=== PATIENT | female | born 1990 | race Caucasian/White ===

== ENCOUNTER → 2016-07-18 | Outpatient (CLI) | payer OTHER ==
[~2016-07-18] MED LIST: ALBU8I INH; LEVOTAB PO
[2016-07-18 13:20] LABS: AUTOMATED NEUTROPHIL # 4.9 TH/MM3 (1.8-7.7); BASOPHIL % 0.3 % (0.0-2.0); EOSINOPHIL # 0.1 TH/MM3 (0-0.4); EOSINOPHIL % 0.9 % (0.0-4.0); HEMATOCRIT 32.6 % (35.0-46.0); HEMO FLAGS DIFF FINAL; LYMPH % 34.7 % (9.0-44.0); LYMPHOCYTE # 2.9 TH/MM3 (1.0-4.8); MEAN CELL VOLUME 88.1 FL (80.0-100.0); MEAN CORPUSCULAR HEMOGLOBIN 30.5 PG (27.0-34.0); MEAN CORPUSCULAR HGB CONC 34.7 % (32.0-36.0); MONO % 6.1 % (0.0-8.0); PLATELET COUNT 247 TH/MM3 (150-450); RED BLOOD COUNT 3.71 MIL/MM3 (4.00-5.30); RED CELL DISTRIBUTION WIDTH 13.3 % (11.6-17.2); WHITE BLOOD COUNT 8.4 TH/MM3 (4.0-11.0)
[2016-07-18 13:47] LABS: RUBELLA IGG ANTIBODY 17.3 IU/mL (10.0-500.0); RUBELLA STATUS IMMUNE (IMMUNE)
[2016-07-19 14:56] LABS: RAPID PLASMA REAGIN SCREEN NON-REACTIVE (NON-REACTVE)
[2016-07-22 17:18] LABS: CALCULATED AGE AT EDD 26 years (()); DOWN SYNDROME MATERNAL AGE RIS 1/990 (()); GA USED IN RISK ESTIMATE Scan estimate (()); MATERNAL RACE BLACK non-Black (()); MATERNAL WEIGHT (LBS) 146 lbs (()); RECOMMENDED FOLLOW UP None. (()); TRISOMY 18 SCRN RISK ESTIMATE < 1/100 (())
== END ==
LOC: PLAB 08:12
PROVIDERS: ATTEND Obstetrics & Gynecology
DX: Z34.01 Encounter for supervision of normal first pregnancy, first trimester (principal); Z11.3 Encounter for screening for infections with a predominantly sexual mode of transmission
CPT/HCPCS: 81511; 85025; 86592; 86703; 86762; 86850; 86900; 86901; 87086; 87340

== ENCOUNTER → 2016-10-03 | Outpatient (CLI) | payer OTHER ==
[2016-10-03 12:38] LABS: HEMATOCRIT 29.7 % (35.0-46.0); REVIEW FLAG FINAL
== END ==
LOC: CLAB 11:19
PROVIDERS: ATTEND Obstetrics & Gynecology
DX: Z34.02 Encounter for supervision of normal first pregnancy, second trimester (principal); Z11.3 Encounter for screening for infections with a predominantly sexual mode of transmission
CPT/HCPCS: 36415; 82951; 85014; 85018; 86703

== ENCOUNTER → 2016-10-16 | Outpatient (CLI) | payer OTHER | LOC: CLAB 09:25 | PROVIDERS: ATTEND Obstetrics & Gynecology | DX: Z34.03 Encounter for supervision of normal first pregnancy, third trimester (principal) | CPT/HCPCS: 36415; 82951; 82952 ==

== ENCOUNTER → 2016-10-17 | Outpatient (CLI) | payer OTHER ==
--- NOTE | 2016-10-18 15:05 | HM ---
Date Performed: 10/17/2016 Time Performed: 08:38:00 HOOKUP DATE: 10/17/16 08:38:00 AM [facility] ANALYSIS START TIME: 10/17/2016 8:43:00 AM ANALYSIS END TIME: 10/18/2016 8:47:00 AM PATIENT AGE: 26 PATIENT HEIGHT PATIENT WEIGHT DRUG LIST PATIENT DIAGNOSIS: syncope TEST NARRATIVE: The patient's average heart rate was 97 BPM. Heart rates greater than 120 B PM were noted 12% of the time. No episodes of bradycardia were noted. No pauses exceeding 2.0 se conds were noted. No ventricular ectopics were noted. No supraventricular ectopics were noted . Multiple episodes of ST depression (defined as -1.0 mm or more) were noted in channel 1. The maximum depression of -4.0 mm occurred at 07:09:36 PM Kaitlin. Multiple episodes of ST depression (defin ed as -1.0 mm or more) were noted in channel 2. The maximum depression of -3.5 mm occurred at 01:05 :51 PM Kaitlin. Multiple episodes of ST depression (defined as -1.0 mm or more) were noted in channel 3 . The maximum depression of -3.3 mm occurred at 12:51:48 PM Kaitlin. TEST INTERPRETATION: 24 Hour Holter Monitor- Dr. Raghav Gross There was normal Sinus rhythm . There are several periods of sinus tachycardia, with a maximum heart rate of 162 beats per minute a t 05:46 p.m. There was no diary with the Holter tracing. There is no paroxysmal Francisco arrhythmias wer e noted, and no ectopy was seen. S igned by : Raghav Gross
== END ==
LOC: HCAV 08:21
PROVIDERS: ATTEND Obstetrics & Gynecology
DX: R55 Syncope and collapse (principal)
CPT/HCPCS: 93225; 93226

== ENCOUNTER 2016-12-27 10:04 | Inpatient (IN) | payer OTHER ==
[2016-12-27] VITALS (102 sets, daily range): BP systolic 99–145; BP diastolic 54–92; PULSE 67–172; RESP 16–20; TEMP 97.7–98.3
[2016-12-27 11:51] LABS: BACTERIA, URINE FEW /hpf; BLOOD, URINE SMALL (NEG); COMMENT (UR) CULTURE INDICATED; CULTURE IF INDICATED CULTURE INDICATED; GLUCOSE,URINE NEG (NEG); KETONE, URINE NEG (NEG); MUCUS URINE FEW /lpf (OCC); NITRITE,URINE NEG (NEG); PH, URINE 6.5 (5.0-8.5); SQUAMOUS EPITHELIAL CELL URINE 11 /hpf (0-5); URINE COLOR YELLOW (YELLW/STRAW)
[2016-12-27 11:52] LABS: AUTOMATED NEUTROPHIL # 5.2 TH/MM3 (1.8-7.7); BASOPHIL % 0.3 % (0.0-2.0); EOSINOPHIL # 0.1 TH/MM3 (0-0.4); EOSINOPHIL % 0.8 % (0.0-4.0); HEMATOCRIT 28.9 % (35.0-46.0); HEMO FLAGS DIFF FINAL; LYMPH % 31.6 % (9.0-44.0); LYMPHOCYTE # 2.8 TH/MM3 (1.0-4.8); MEAN CELL VOLUME 79.9 FL (80.0-100.0); MEAN CORPUSCULAR HEMOGLOBIN 25.4 PG (27.0-34.0); MEAN CORPUSCULAR HGB CONC 31.8 % (32.0-36.0); MONO % 7.4 % (0.0-8.0); NEUT % 59.9 % (16.0-70.0); PLATELET COUNT 259 TH/MM3 (150-450); RED BLOOD COUNT 3.62 MIL/MM3 (4.00-5.30); RED CELL DISTRIBUTION WIDTH 14.8 % (11.6-17.2); WHITE BLOOD COUNT 8.7 TH/MM3 (4.0-11.0)
[2016-12-27] MEDS ORDERED: MINERAL OIL 10 ML VIAL TOPICAL PRN (12:15)
[2016-12-27] MEDS ORDERED: LIDOCAINE HCL 1% 50 ML VIAL INFIL PRN (12:15)
[2016-12-27] MEDS ORDERED: NS 500 ML BOLUS IV PRN (12:30)
[2016-12-27] MEDS ORDERED: LIDOCAINE HCL 1% 50 ML VIAL I-DERMAL PRN (12:30)
[2016-12-27] MEDS ORDERED: NS 1000 ML IV PRN (12:30)
[2016-12-27] MEDS ORDERED: CITRIC ACID-SODIUM CITRATE LIQ 30 ML UDC PO SCH (12:30)
[2016-12-27] MEDS ORDERED: OXYTOCIN 30 UNITS 500ML PREMIX IV ONE (12:30)
[2016-12-27] MEDS ORDERED: OXYTOCIN 30 UNITS/NS 500ML PREMIX IV SCH (12:30)
[2016-12-27] MEDS ORDERED: ONDANSETRON HCL 4 MG/2 ML VIAL IV PRN (12:30)
[2016-12-27] MEDS ORDERED: LACTATED RINGER'S 1000 ML BOLUS IV PRN (12:30)
[2016-12-27] MEDS: LACTATED RINGER'S 1000 ML IV SCH ×2 (13:20→19:01)
[2016-12-27] MEDS ORDERED: fentaNYL 2MCG-BUPIV 0.125% INJ 100 ML ONE (19:09)
[2016-12-27] MEDS ORDERED: ePHEDrine/NS 25 MG/5 ML SYR IV PRN (20:30)
[2016-12-27] MEDS ORDERED: DO NOT ADMINISTER ANTICOAGULANTS PRN (20:30)
[2016-12-27] MEDS ORDERED: NO SYSTEM NARCOTICS PRN (20:30)
[2016-12-27] MEDS ORDERED: fentaNYL 2MCG-BUPIV 0.125% 100 ML EPIDURAL SCH (20:30)
--- NOTE | 2016-12-27 23:58 | HHI.HP ---
HPI Chief Complaint 26 yo here for induction Date Seen: Dec 27, 2016 Time Seen: 11:30 Travel History International Travel<30 Days: No Contact w/Intl Traveler<30Days: No Known Affected Area: No History of Present Illness HPI Induction at 2 cm doing well without many CTX Para: 0 : 1 History Past Medical History Medical History: Denies Significant Hx Obstetric History Obstetric History primaparous Past Surgical History Surgical History: No Previous Surgery Family History Family History: Negative Social History Alcohol Use: No Tobacco Use: No Substance Abuse: No Allergies-Medications (Allergen,Severity, Reaction): Coded Allergies: Morphine (Verified Allergy, Severe, Swelling, 03/14/16) sweeling on arms Augmentin (Verified Allergy, Intermediate, vomiting, 03/14/16) Chlorhexidine (Verified Allergy, Unknown, 03/14/16) Uncoded Allergies: PRESERVATIVES (Adverse Reaction, Severe, 08/28/14) Home Meds Active Scripts Levonorgestrel & Eth Estradiol (Falmina) Tab1 Tab PO DAILY #1 PACK Ref 3 Prov:Saundra Gray MD 12/04/15 Albuterol Sulfate 8 GM Inhaler (Ventolin Hfa)8 Gm Aero1-2 Puff INH Q4 PRN ( WHEEZING) #1 INHALER Ref 1 * SHAKE WELL BEFORE USE * Prov:Saundra Gray MD 10/11/14 Review of Systems Except as stated in HPI: all other systems reviewed are Neg Physical Exam Vital Signs Date Time Temp Pulse Resp B/P Pulse Ox O2 Delivery O2 Flow Rate FiO2 12/27/16 23:48 98.3 12/27/16 23:40 77 12/27/16 23:35 71 12/27/16 23:30 78 12/27/16 23:30 18 12/27/16 23:30 76 126/77 12/27/16 23:25 70 12/27/16 23:24 71 127/77 12/27/16 23:20 70 12/27/16 23:15 18 12/27/16 23:15 69 132/78 12/27/16 23:15 70 12/27/16 23:10 73 12/27/16 23:05 72 12/27/16 23:00 70 12/27/16 23:00 18 12/27/16 23:00 73 114/82 12/27/16 22:55 74 12/27/16 22:50 76 12/27/16 22:45 18 12/27/16 22:45 172 12/27/16 22:45 82 124/90 12/27/16 22:40 76 12/27/16 22:35 76 12/27/16 22:30 70 12/27/16 22:30 18 12/27/16 22:30 75 121/79 12/27/16 22:25 80 12/27/16 22:20 78 12/27/16 22:15 72 12/27/16 22:15 75 145/73 12/27/16 22:15 18 12/27/16 22:10 71 12/27/16 22:05 80 12/27/16 22:00 72 12/27/16 22:00 97.7 74 104/54 12/27/16 22:00 18 12/27/16 21:55 71 12/27/16 21:50 75 12/27/16 21:45 74 102/62 12/27/16 21:45 68 12/27/16 21:45 18 12/27/16 21:40 85 12/27/16 21:35 74 12/27/16 21:30 18 12/27/16 21:30 74 99/66 12/27/16 21:30 133 12/27/16 21:25 77 12/27/16 21:20 76 12/27/16 21:15 79 113/59 12/27/16 21:15 79 12/27/16 21:15 18 12/27/16 21:10 87 12/27/16 21:05 81 12/27/16 21:00 88 121/65 12/27/16 21:00 72 12/27/16 21:00 18 12/27/16 20:55 85 12/27/16 20:50 74 12/27/16 20:45 79 18 107/68 12/27/16 20:45 71 12/27/16 20:40 92 12/27/16 20:35 108 12/27/16 20:30 99 107/71 12/27/16 20:30 18 12/27/16 20:30 72 12/27/16 20:25 67 12/27/16 20:20 76 12/27/16 20:15 18 12/27/16 20:15 83 12/27/16 20:15 69 113/76 12/27/16 20:10 76 12/27/16 20:05 85 12/27/16 20:00 78 12/27/16 20:00 79 118/77 12/27/16 19:55 77 12/27/16 19:55 83 116/71 12/27/16 19:50 79 12/27/16 19:50 83 114/62 12/27/16 19:45 79 12/27/16 19:45 79 116/69 12/27/16 19:45 18 12/27/16 19:40 81 120/73 12/27/16 19:40 75 12/27/16 19:35 82 118/68 12/27/16 19:35 81 12/27/16 19:30 78 12/27/16 19:29 82 133/79 12/27/16 19:25 88 12/27/16 19:20 85 12/27/16 19:15 18 12/27/16 18:27 20 12/27/16 18:25 73 122/80 12/27/16 17:15 98.2 12/27/16 17:14 93 122/78 12/27/16 17:13 86 140/92 12/27/16 17:12 16 12/27/16 16:10 16 12/27/16 16:08 113 115/76 12/27/16 15:25 83 12/27/16 15:20 89 12/27/16 15:15 77 12/27/16 15:10 81 12/27/16 15:10 78 120/85 12/27/16 15:09 77 18 132/90 12/27/16 14:24 87 120/79 12/27/16 14:24 16 12/27/16 14:23 97.8 12/27/16 13:35 103 12/27/16 13:30 88 12/27/16 13:25 92 12/27/16 13:21 16 12/27/16 13:21 92 119/83 12/27/16 13:20 93 12/27/16 13:15 93 12/27/16 13:10 89 12/27/16 13:05 92 12/27/16 13:00 99 12/27/16 12:55 91 8/4/17 12:51 97 12/27/16 12:51 117/75 12/27/16 12:50 98 12/27/16 12:45 92 12/27/16 12:40 93 12/27/16 12:37 16 12/27/16 12:35 81 12/27/16 12:34 79 121/82 12/27/16 12:20 86 12/27/16 12:15 95 12/27/16 12:10 94 12/27/16 12:05 83 12/27/16 12:00 98 12/27/16 11:55 93 12/27/16 11:50 84 12/27/16 11:45 84 12/27/16 11:40 96 12/27/16 11:35 94 Narrative GENERAL: Well-nourished, well-developed patient. SKIN: Warm and dry. HEAD: Normocephalic and atraumatic. EYES: No scleral icterus. No injection or drainage. ENT: No nasal drainage noted. Mucous membranes pink. Airway patent. NECK: Supple, trachea midline. No JVD. CARDIOVASCULAR: Regular rate and rhythm without murmurs, gallops, or rubs. RESPIRATORY: Breath sounds equal bilaterally. No accessory muscle use. BREASTS: Bilateral exam showed no masses , no retractions, no nipple discharge. ABDOMEN/GI: Abdomen soft, non-tender, bowel sounds present, no rebound, no guarding Gravid to [-] weeks size Fundal Height: [-] GENITOURINARY: External Genitalia: intact and normal in appearance BUS glands: [-] Cervix: [-] Dilatation: [-] Effacement: [-] Station: [-] Presentation: [-] Membranes: [intact or ruptured] Uterine Contractions: [-] FHT's: Category: [-] Baseline: [-] Reactive: [-] Variability: [-] Decels: [-] EXTREMITIES: No cyanosis or edema. BACK: Nontender without obvious deformity. No CVA tenderness. NEUROLOGICAL: Awake and alert. Motor and sensory grossly within normal limits. Five out of 5 muscle strength in all muscle groups. Normal speech. Data Data Vital Signs Reviewed: Yes Orders Code Status (12/27/16 11:39) Vital Signs (Adult) .Per protocol (12/27/16 11:39) Heart (12/27/16 11:39) Amnioinfusion (12/27/16 11:39) Urinary Catheter Management .ONCE (12/27/16 11:39) Complete Blood Count With Diff (12/27/16 11:39) Hold Clot (12/27/16 11:39) Abo/Rh Blood Type (12/27/16 11:39) Urinalysis - C+S If Indicated (12/27/16 11:39) Resp Oxygen Non Rebreathe Mask (12/27/16 ) ^ Epidural / Intrathecal Infus (12/27/16 11:39) Specimen To Be Collected PRN (12/27/16 11:39) ^ Non Stress Test (12/27/16 11:40) Response To Medication .Post New Med Administration, Reaction (12/27/16 11:40) ^ Discontinue Medication (12/27/16 11:40) Diet Liquid (12/27/16 Lunch) Lactated Ringer's 1000 Ml Inj (Lr 1000 M (12/27/16 12:30) Lactated Ringer's 1000 Ml Inj (Lr 1000 M (12/27/16 12:30) Sodium Chlorid 0.9% 500 Ml Inj (Ns 500 M (12/27/16 12:30) Sodium Chlor 0.9% 1000 Ml Inj (Ns 1000 M (12/27/16 12:30) Lidocaine 1% Inj (50 Ml) (Xylocaine 1% I (12/27/16 12:30) Citric Acid-Sodium Citrate Liq (Bicitra (12/27/16 12:30) Ondansetron Inj (Zofran Inj) (12/27/16 12:30) Fentanyl Inj (Fentanyl Inj) (12/27/16 12:15) Fentanyl Inj (Fentanyl Inj) (12/27/16 12:15) Oxytocin 30 Units-500ml Premix (Pitocin (12/27/16 12:30) Lidocaine 1% Inj (50 Ml) (Xylocaine 1% I (12/27/16 12:15) Light Mineral Oil (Muri-Lube Oil) (12/27/16 12:15) Oxytocin 30 Units-500ml Premix (Pitocin (12/27/16 12:30) Urine Culture (12/27/16 10:20) Fentanyl 2mcg-Bupiv 0.125% Inj (Fentanyl (12/27/16 19:09) Misc Nursing Information (12/27/16 20:30) [facility] [place] (12/27/16 20:30) Fentanyl Inj (Fentanyl Inj) (12/27/16 20:30) Fentanyl 2mcg-Bupiv 0.125% Inj (Fentanyl (12/27/16 20:30) Ephedrine/Ns 25 Mg/5 Ml Syr (Ephedrine/N (12/27/16 20:30) Labs Laboratory Tests Test 12/27/16 12/27/16 10:20 10:45 Urine Color YELLOW Urine Turbidity HAZY Urine pH 6.5 Urine Specific [place] 1.012 Urine Protein NEG Urine Glucose (UA) NEG Urine Ketones NEG Urine Occult Blood SMALL Urine Nitrite NEG Urine Bilirubin NEG Urine Urobilinogen LESS THAN 2.0 Urine Leukocyte Esterase LARGE Urine RBC 4 Urine WBC 19 Urine Squamous Epithelial 11 Cells Urine Bacteria FEW Urine Mucus FEW Microscopic Urinalysis Comment CULTURE INDICATED White Blood Count 8.7 Red Blood Count 3.62 Hemoglobin 9.2 Hematocrit 28.9 Mean Corpuscular Volume 79.9 Mean Corpuscular Hemoglobin 25.4 Mean Corpuscular Hemoglobin 31.8 Concent Red Cell Distribution Width 14.8 Platelet Count 259 Mean Platelet Volume 8.2 Neutrophils (%) (Auto) 59.9 Lymphocytes (%) (Auto) 31.6 Monocytes (%) (Auto) 7.4 Eosinophils (%) (Auto) 0.8 Basophils (%) (Auto) 0.3 Neutrophils # (Auto) 5.2 Lymphocytes # (Auto) 2.8 Monocytes # (Auto) 0.6 Eosinophils # (Auto) 0.1 Basophils # (Auto) 0.0 CBC Comment DIFF FINAL Differential Comment Blood Type A POSITIVE Band and Hold Date/Time Procedure Status Source Growth 12/27/16 10:20 Urine Culture Received Urine Clean Catch Pending Assessment/Plan Problem List: (1) 40 weeks gestation of Discharge Planning dc home expect vaginal Nixon Thompson MD Dec 27, 2016 23:58
[2016-12-28] VITALS (27 sets, daily range): BP systolic 110–130; BP diastolic 62–108; PULSE 62–108; RESP 16–20; TEMP 98
[2016-12-28] MEDS ORDERED: DOCUSATE SODIUM 50 MG/SENNA 8.6 MG TAB PO PRN (01:45)
[2016-12-28] MEDS ORDERED: SODIUM CHLORIDE 0.9% FLUSH 10 ML FLUSH IV FLUSH PRN (01:45)
[2016-12-28] MEDS ORDERED: oxyCODONE/ACETAMINOPHEN 5 MG/325 MG TAB PO PRN ×2 (01:45)
[2016-12-28] MEDS ORDERED: OXYTOCIN 30 UNITS-500ML PREMIX 500 ML IV SCH (01:45)
[2016-12-28] MEDS ORDERED: ZOLPIDEM TARTRATE 5 MG TAB PO PRN (01:45)
[2016-12-28] MEDS ORDERED: ALUMINUM/MAGNESIUM/SIMETH 30 ML CUP PO PRN (01:45)
[2016-12-28] MEDS ORDERED: ONDANSETRON ODT 4 MG TAB PO PRN (01:45)
--- NOTE | 2016-12-28 01:47 | PD.OB.DELI ---
Delivery Date: Dec 28, 2016 Anesthesia: Epidural Episiotomy: Right mediolateral Vaginal Delivery: Normal, Spontaneous Presentation: Occiput anterior Delayed cord clamping (45 sec): Yes Infant: Male, Single One Minute : 9 Five Minute : 9 Weight: 7# 3 oz Placenta: Spontaneous delivery, Intact, 3 vessel cord Laceration: Perineal laceration, 2 deg Estimated blood loss: 300 Nixon Thompson MD Dec 28, 2016 01:47
[2016-12-28] MEDS: IBUPROFEN 600 MG TAB PO PRN ×4 (04:04→21:32)
[2016-12-28] MEDS: BENZOCAINE 20% TOPICAL SPRAY 60 ML CAN TOPICAL PRN (05:17)
[2016-12-28] MEDS: WITCH HAZEL 50%/GLYCERIN 12.5% 40 PAD JAR TOPICAL PRN (05:17)
[2016-12-28] MEDS: ACETAMINOPHEN 325 MG TAB PO PRN ×4 (05:17→21:31)
[2016-12-28] MEDS ORDERED: DIPHTH/TETANUS/ACEL PERTUSSIS (BOOSTER) 0.5 ML VIAL/PFS IM ONE (16:00)
[2016-12-28] MEDS: SODIUM CHLORIDE 0.9% FLUSH 10 ML FLUSH IV FLUSH SCH (16:00)
[2016-12-28] MEDS ORDERED: MEASLES, MUMPS, RUBELLA VACCINE 0.5 ML VIAL SQ ONE (16:00)
[2016-12-29] MEDS: IBUPROFEN 600 MG TAB PO PRN ×3 (05:43→17:40)
[2016-12-29] MEDS: ACETAMINOPHEN 325 MG TAB PO PRN ×3 (05:43→17:40)
[2016-12-29] MEDS: SODIUM CHLORIDE 0.9% FLUSH 10 ML FLUSH IV FLUSH SCH (07:24)
[2016-12-29 08:45] VITALS: BP 111/65; PULSE 68; RESP 18; TEMP 97.4
--- NOTE | 2016-12-29 11:31 | HHI.OB ---
Subjective Post Day: 1 Remarks doing well Objective Vitals/I&O Vital Signs Date Time Temp Pulse Resp B/P Pulse Ox O2 Delivery O2 Flow Rate FiO2 12/29/16 08:45 97.4 68 18 111/65 12/28/16 19:40 98.0 62 20 110/67 Objective Remarks GENERAL: Well-nourished, well-developed patient. ABDOMEN/GI: Abdomen soft, non-tender. Fundus: Firm, non-tender at umbilicus. GENITOURINARY: Light to moderate bleeding. EXTREMITIES: No cyanosis or edema, non-tender, without signs of DVT. Medications and IVs Current Medications Medications (Trade) Dose Ordered Sig/Ning Route Start Time Stop Time Status Last Admin (Zofran Inj) 4 mg Q6H PRN IV 12/27/16 12:30 (NS Flush) 2 ml BID IV FLUSH 12/28/16 09:00 (NS Flush) 2 ml UNSCH PRN IV FLUSH 12/28/16 01:45 (Tylenol) 650 mg Q4H PRN PO 12/28/16 01:45 12/29/16 05:43 (Motrin) 600 mg Q6H PRN PO 12/28/16 01:45 12/29/16 05:43 (Percocet 5-325 Mg) 1 tab Q4H PRN PO 12/28/16 01:45 (Percocet 5-325 Mg) 2 tab Q4H PRN PO 12/28/16 01:45 (Americaine 20% Top Spr) 1 spray Q4H PRN TOPICAL 12/28/16 01:45 12/28/16 05:17 (Tucks Pads) 1 applic QID PRN TOPICAL 12/28/16 01:45 12/28/16 05:17 (Tonya-Colace) 2 tab Q12H PRN PO 12/28/16 01:45 (Ambien) 5 mg HS PRN PO 12/28/16 01:45 (Mag-Al Plus Susp Liq) 15 ml Q8H PRN PO 12/28/16 01:45 (Zofran Odt) 4 mg Q6H PRN PO 12/28/16 01:45 Assessment/Plan Problem List: (1) 40 weeks gestation of Discharge Planning dc home expect vaginal Nixon Thompson MD Dec 29, 2016 11:31
[2016-12-29 20:12] VITALS: BP 114/76; PULSE 82; RESP 18; TEMP 97.3
[2016-12-30] MEDS: IBUPROFEN 600 MG TAB PO PRN ×3 (00:05→14:05)
[2016-12-30] MEDS: ACETAMINOPHEN 325 MG TAB PO PRN ×3 (00:06→14:04)
[2016-12-30] MEDS: BENZOCAINE 20% TOPICAL SPRAY 60 ML CAN TOPICAL PRN (00:21)
[2016-12-30] MEDS: WITCH HAZEL 50%/GLYCERIN 12.5% 40 PAD JAR TOPICAL PRN (00:21)
[2016-12-30] MEDS: SODIUM CHLORIDE 0.9% FLUSH 10 ML FLUSH IV FLUSH SCH (07:41)
[2016-12-30 08:52] VITALS: BP 117/82; PULSE 75; RESP 16; TEMP 98.1
--- NOTE | 2016-12-30 13:42 | HHI.OB ---
Subjective Post Day: 2 Remarks doing well dc home Objective Vitals/I&O Vital Signs Date Time Temp Pulse Resp B/P Pulse Ox O2 Delivery O2 Flow Rate FiO2 12/30/16 08:52 98.1 75 16 117/82 12/29/16 20:12 82 18 114/76 12/29/16 20:12 97.3 Objective Remarks GENERAL: Well-nourished, well-developed patient. ABDOMEN/GI: Abdomen soft, non-tender. Fundus: Firm, non-tender at umbilicus. GENITOURINARY: Light to moderate bleeding. EXTREMITIES: No cyanosis or edema, non-tender, without signs of DVT. Medications and IVs Current Medications Medications (Trade) Dose Ordered Sig/Ning Route Start Time Stop Time Status Last Admin (Zofran Inj) 4 mg Q6H PRN IV 12/27/16 12:30 (NS Flush) 2 ml BID IV FLUSH 12/28/16 09:00 (NS Flush) 2 ml UNSCH PRN IV FLUSH 12/28/16 01:45 (Tylenol) 650 mg Q4H PRN PO 12/28/16 01:45 12/30/16 07:45 (Motrin) 600 mg Q6H PRN PO 12/28/16 01:45 12/30/16 07:46 (Percocet 5-325 Mg) 1 tab Q4H PRN PO 12/28/16 01:45 (Percocet 5-325 Mg) 2 tab Q4H PRN PO 12/28/16 01:45 (Americaine 20% Top Spr) 1 spray Q4H PRN TOPICAL 12/28/16 01:45 12/30/16 00:21 (Tucks Pads) 1 applic QID PRN TOPICAL 12/28/16 01:45 12/30/16 00:21 (Tonya-Colace) 2 tab Q12H PRN PO 12/28/16 01:45 (Ambien) 5 mg HS PRN PO 12/28/16 01:45 (Mag-Al Plus Susp Liq) 15 ml Q8H PRN PO 12/28/16 01:45 (Zofran Odt) 4 mg Q6H PRN PO 12/28/16 01:45 Assessment/Plan Problem List: (1) 40 weeks gestation of Discharge Planning dc home expect vaginal Nixon Thompson MD Dec 30, 2016 13:42
[2016-12-30] MEDS ORDERED: OXYC1TAB63 PO (13:43)
--- NOTE | 2016-12-30 13:44 | HHI.DCPOC ---
Discharge Care Plan Diagnosis: (1) Spontaneous vaginal delivery Report Symptoms to Your Doctor -Temperature above 100.5 degrees -Redness, of incision or excessive or foul smelling drainage -Unusual pain or calf pain -Increased vaginal bleeding -Painful or difficulty urinating -Feelings of extreme sadness or anxiety after 2 weeks Goals to Promote Your Health * To prevent worsening of your condition and complications * To maintain your health at the optimal level Directions to Meet Your Goals Take your medications as prescribed Follow your dietary instruction Follow activity as directed Ensure plenty of rest for recovery Drink fluids for hydration Keep your appointments as scheduled Take your immunizations and boosters as scheduled If your symptoms worsen call your PCP, if no PCP go to Urgent Care Center or Emergency Room Smoking is Dangerous to Your Health. Avoid second hand smoke Call the 24-hour crisis hotline for domestic abuse at Nixon Thompson MD Dec 30, 2016 13:44
--- NOTE | 2016-12-30 13:46 | HHI.DS ---
Admission Date Dec 27, 2016 at 10:04 Discharge Date: Dec 30, 2016 Admitting Diagnosis Diagnosis: (1) 40 weeks gestation of Diagnosis: Principal (2) Spontaneous vaginal delivery Diagnosis: Principal Delivery Date: Dec 28, 2016 Vaginal Delivery: Normal : Male, Single Brief History Induction at 2 cm doing well without many CTX Hospital Course dc home Pt Condition on Discharge: Good Discharge Disposition: Discharge Home Discharge Instructions Diet Instructions: As Tolerated, No Restrictions Activities You Can Perform: Pelvic Rest Activities to Avoid: Driving for 24 hrs Follow up Referrals: [employer] [facility] - 2 Weeks @ [facility] with Nixon Thompson MD New Medications: Oxycodone-Acetaminophen (Oxycodone-Acetaminophen) 5-325 mg Tab 1 TAB PO Q4H PRN PAIN SCALE 3 TO 5 #20 TAB Discontinued Medications: Albuterol Sulfate 8 GM Inhaler (Ventolin Hfa) 8 Gm Aero 1-2 PUFF INH Q4 * SHAKE WELL BEFORE USE * PRN WHEEZING #1 Ref 1 INHALER Levonorgestrel & Eth Estradiol (Falmina) Tab 1 TAB PO DAILY #1 Ref 3 PACK Nixon Thompson MD Dec 30, 2016 13:46
== END 2016-12-30 14:47 | disposition home or self-care (01) | DRG 775 ==
LOC: H2EB 10:04 → H1EA 12-28 04:59
PROVIDERS: ADMIT Obstetrics & Gynecology; ATTEND Obstetrics & Gynecology
PROC: 3E0S3CZ (ICD-10-PCS; 2016-12-27)
PROC: 00HU33Z Insertion of Infusion Device into Spinal Canal, Percutaneous Approach (ICD-10-PCS; 2016-12-27)
PROC: 10E0XZZ Delivery of Products of Conception, External Approach (ICD-10-PCS; principal; 2016-12-28)
PROC: 0KQM0ZZ Repair Perineum Muscle, Open Approach (ICD-10-PCS; 2016-12-28)
PROC: 0W8NXZZ Division of Female Perineum, External Approach (ICD-10-PCS; 2016-12-28)
DX: O75.9 Complication of labor and delivery, unspecified (principal); O70.1 Second degree perineal laceration during delivery; Z37.0 Single live birth; Z3A.40 40 weeks gestation of pregnancy
CPT/HCPCS: 59025; 81001; 85025; 86900; 86901; 87086; J2590; J7120

== ENCOUNTER 2017-09-19 17:51 | Emergency (ER) | payer OTHER ==
[~2017-09-19] VITALS: Ht 165.1 cm; Wt 65.2 kg
[~2017-09-19 17:51] MED LIST changes: -ALBU8I INH; -LEVOTAB PO; +OXYC1TAB63 PO
[2017-09-19 18:22] VITALS: BP 116/57; PULSE 109; RESP 18; TEMP 99.5; O2SAT 99
[2017-09-19 19:32] LABS: BILIRUBIN, URINE NEG (NEG); BLOOD, URINE NEG (NEG); GLUCOSE,URINE NEG (NEG); KETONE, URINE NEG (NEG); NITRITE,URINE NEG (NEG); URINE COLOR YELLOW (YELLW/STRAW); URINE LEUKOCYTE ESTERASE NEG (NEG)
[2017-09-19 19:45] LABS: RBC, URINE 0-3 /hpf (0-3); SQUAMOUS EPITHELIAL CELL URINE 0-5 /hpf (0-5); WBC, URINE 0-2 /hpf (0-5)
[2017-09-19] MEDS ORDERED: SODIUM CHLOR 0.9% 1000 ML INJ 1,000 ML IV SCH (19:49)
[2017-09-19] MEDS ORDERED: SODIUM CHLORIDE 0.9% FLUSH 10 ML FLUSH IV FLUSH PRN (20:00)
[2017-09-19 20:09] LABS: AUTOMATED NEUTROPHIL # 1.5 TH/MM3 (1.8-7.7); BASOPHIL # 0.1 TH/MM3 (0-0.2); BASOPHIL % 1.8 % (0.0-2.0); EOSINOPHIL % 0.4 % (0.0-4.0); HEMATOCRIT 38.2 % (35.0-46.0); HEMOGLOBIN 12.8 GM/DL (11.6-15.3); LYMPH % 41.4 % (9.0-44.0); LYMPHOCYTE # 1.5 TH/MM3 (1.0-4.8); MEAN CELL VOLUME 86.3 FL (80.0-100.0); MEAN CORPUSCULAR HEMOGLOBIN 28.9 PG (27.0-34.0); MEAN CORPUSCULAR HGB CONC 33.5 % (32.0-36.0); MEAN PLATELET VOLUME 7.3 FL (7.0-11.0); MONO % 10.1 % (0.0-8.0); MONOCYTE # 0.4 TH/MM3 (0-0.9); NEUT % 46.3 % (16.0-70.0); PLATELET COUNT 198 TH/MM3 (150-450); RED BLOOD COUNT 4.43 MIL/MM3 (4.00-5.30); RED CELL DISTRIBUTION WIDTH 11.7 % (11.6-17.2); WHITE BLOOD COUNT 3.5 TH/MM3 (4.0-11.0)
[2017-09-19 20:18] LABS: CHLORIDE 106 MEQ/L (98-107); SODIUM (NA) 138 MEQ/L (136-145)
[2017-09-19 20:21] LABS: ALBUMIN 3.7 GM/DL (3.4-5.0); BICARBONATE 26.2 MEQ/L (21.0-32.0); CALCIUM 9.1 MG/DL (8.5-10.1); GLUCOSE,RANDOM 99 MG/DL (74-106)
[2017-09-19 20:22] LABS: BLOOD UREA NITROGEN 9 MG/DL (7-18)
[2017-09-19 20:24] LABS: ALT (GPT) 24 U/L (10-53)
[2017-09-19 20:25] LABS: AST (GOT) 21 U/L (15-37); CREATININE 0.41 MG/DL (0.50-1.00); GLOMERULAR FILTRATION RATE 186 ML/MIN (>89)
[2017-09-19 20:26] LABS: TOTAL BILIRUBIN ADULT 0.3 MG/DL (0.2-1.0); TOTAL PROTEIN 7.5 GM/DL (6.4-8.2)
[2017-09-19 20:27] LABS: ALKALINE PHOSPHATASE 115 U/L (45-117)
--- NOTE | 2017-09-19 20:27 | RADRPT ---
EXAM DATE/TIME: 09/19/2017 20:02 [place] COMPARISON: No previous studies available for comparison. INDICATIONS : Bilateral flank and back pain since last night. ORAL CONTRAST: No oral contrast ingested. RADIATION DOSE: 4.40 CTDIvol (mGy) MEDICAL HISTORY : None SURGICAL HISTORY : None. ENCOUNTER: Initial ACUITY: 1 day PAIN SCALE: 7/10 LOCATION: Bilateral flank TECHNIQUE: Volumetric scanning of the abdomen and pelvis was performed. Using automated exposure control and ad justment of the mA and/or kV according to patient size, radiation dose was kept as low as reasonably achievable to obtain optimal diagnostic quality images. DICOM format image data is available electro nically for review and comparison. FINDINGS: LOWER LUNGS: The visualized lower lungs are clear. LIVER: Homogeneous density without lesion. There is no dilation of the biliary tree. No calcified gallston es. SPLEEN: Normal size without lesion. PANCREAS: Within normal limits. KIDNEYS: Very mild right hydronephrosis. No significant hydroureter. No stones are demonstrated. ADRENAL GLANDS: Within normal limits. VASCULAR: There is no aortic aneurysm. BOWEL/MESENTERY: The stomach, small bowel, and colon demonstrate no acute abnormality. There is no free intraperitone al air or fluid. Normal appendix. ABDOMINAL WALL: Within normal limits. RETROPERITONEUM: There is no lymphadenopathy. BLADDER: No wall thickening or mass. REPRODUCTIVE: Within normal limits. INGUINAL: There is no lymphadenopathy or hernia. MUSCULOSKELETAL: Within normal limits for patient age. CONCLUSION: Mild hydronephrosis on the right without hydroureter. A mild degree of congenital UPJ obstruction wou ld be in the differential. Otherwise negative. No stones or inflammatory changes are demonstrated. Nixon Franz MD on September 19, 2017 at 20:21 Board Certified Radiologist. This report was verified electronically.
[2017-09-19 20:35] VITALS: BP 124/71; PULSE 90; RESP 18; TEMP 98.5; O2SAT 99
--- NOTE | 2017-09-19 20:42 | PD ---
HPI Chief Complaint: Flank/Kidney Pain Time Seen by Provider: 19:37 Travel History International Travel<30 days: No Contact w/Intl Traveler<30days: No Traveled to known affect area: No History of Present Illness HPI Patient is a 27-year-old female who comes in complaining of flank pain. She says the pain is in both of her sides and is been going on for the past few days. She says that she had a temperature 100.2 earlier and was concerned she might have a UTI, so she came in. She denies nausea or vomiting. She denies burning on urination. She is currently breast-feeding an 8-month-old infant. She is not taking anything for her pain. Severity is mild to moderate. PFSH Past Medical History Asthma: Yes Diminished Hearing: No Respiratory: Yes (LATENT TB) Immunizations Current: Yes Influenza Vaccination: No ?: Not LMP: 02/2016 : 0 Past Surgical History Surgical History: No Previous Surgery Oral Surgery: Yes (WISDOM TOOTH) Social History Alcohol Use: No Tobacco Use: No Substance Use: No Allergies-Medications (Allergen,Severity, Reaction): Coded Allergies: morphine (Unverified Allergy, Severe, Swelling, 09/19/17) sweeling on arms amoxicillin (Unverified Allergy, Intermediate, vomiting, 09/19/17) clavulanic acid (Unverified Allergy, Intermediate, vomiting, 09/19/17) chlorhexidine (Unverified Allergy, Unknown, 09/19/17) Uncoded Allergies: PRESERVATIVES (Adverse Reaction, Severe, 08/28/14) Reported Meds & Prescriptions Reported Meds & Active Scripts Active No Active Prescriptions or Reported Medications Review of Systems Except as stated in HPI: all other systems reviewed are Neg General / Constitutional: Positive: Fever HENT: No: Headaches, Lightheadedness Cardiovascular: No: Chest Pain or Discomfort Respiratory: No: Shortness of Breath Genitourinary: Positive: Flank Pain, No: Dysuria Musculoskeletal: No: Myalgias Skin: No Rash, No Change in Pigmentation Neurologic: No: Weakness, Dizziness Physical Exam Narrative GENERAL: Awake and alert, in no acute distress. SKIN: Focused skin assessment warm/dry. No wounds or signs of infection. HEAD: Atraumatic. Normocephalic. EYES: Pupils equal and round. No scleral icterus. ENT: Mucous membranes pink and moist. NECK: Trachea midline. No JVD. CARDIOVASCULAR: Regular rate and rhythm. No murmur appreciated. RESPIRATORY: No accessory muscle use. Clear to auscultation. Breath sounds equal bilaterally. GASTROINTESTINAL: Abdomen soft, non-tender, nondistended. No CVA tenderness. MUSCULOSKELETAL: No obvious deformities. No clubbing. No cyanosis. No edema. NEUROLOGICAL: Awake and alert. No obvious cranial nerve deficits. Motor grossly within normal limits. Normal speech. PSYCHIATRIC: Appropriate mood and affect; insight and judgment normal. Data Data Last Documented VS Vital Signs Date Time Temp Pulse Resp B/P (MAP) Pulse Ox O2 Delivery O2 Flow Rate FiO2 09/19/17 20:35 98.5 90 18 124/71 (88) 99 Room Air Orders Orders Urinalysis - C+S If Indicated (09/19/17 19:23) Ed Urine Pregnancytest Poc (09/19/17 19:23) Complete Blood Count With Diff (09/19/17 19:49) Comprehensive Metabolic Panel (09/19/17 19:49) Ct Abd/Pel W/O Iv Contrast (09/19/17 19:49) Iv Access Insert/Monitor (09/19/17 19:49) Ecg Monitoring (09/19/17 19:49) Oximetry (09/19/17 19:49) Sodium Chlor 0.9% 1000 Ml Inj (Ns 1000 M (09/19/17 19:49) Sodium Chloride 0.9% Flush (Ns Flush) (09/19/17 20:00) Labs Laboratory Tests Test 09/19/17 19:27 09/19/17 20:00 Urine Color YELLOW Urine Turbidity CLEAR Urine pH 6.0 Urine Specific [place] 1.020 Urine Protein NEG mg/dL Urine Glucose (UA) NEG mg/dL Urine Ketones NEG mg/dL Urine Occult Blood NEG Urine Nitrite NEG Urine Bilirubin NEG Urine Urobilinogen 0.2 MG/DL Urine Leukocyte Esterase NEG Urine RBC 0-3 /hpf Urine WBC 0-2 /hpf Urine Squamous Epithelial Cells 0-5 /hpf Microscopic Urinalysis Comment CULT NOT INDICATED White Blood Count 3.5 TH/MM3 Red Blood Count 4.43 MIL/MM3 Hemoglobin 12.8 GM/DL Hematocrit 38.2 % Mean Corpuscular Volume 86.3 FL Mean Corpuscular Hemoglobin 28.9 PG Mean Corpuscular Hemoglobin Concent 33.5 % Red Cell Distribution Width 11.7 % Platelet Count 198 TH/MM3 Mean Platelet Volume 7.3 FL Neutrophils (%) (Auto) 46.3 % Lymphocytes (%) (Auto) 41.4 % Monocytes (%) (Auto) 10.1 % Eosinophils (%) (Auto) 0.4 % Basophils (%) (Auto) 1.8 % Neutrophils # (Auto) 1.5 TH/MM3 Lymphocytes # (Auto) 1.5 TH/MM3 Monocytes # (Auto) 0.4 TH/MM3 Eosinophils # (Auto) 0.0 TH/MM3 Basophils # (Auto) 0.1 TH/MM3 CBC Comment DIFF FINAL Differential Comment Blood Urea Nitrogen 9 MG/DL Creatinine 0.41 MG/DL Random Glucose 99 MG/DL Total Protein 7.5 GM/DL Albumin 3.7 GM/DL Calcium Level 9.1 MG/DL Alkaline Phosphatase 115 U/L Aspartate Amino Transf (AST/SGOT) 21 U/L Alanine Aminotransferase (ALT/SGPT) 24 U/L Total Bilirubin 0.3 MG/DL Sodium Level 138 MEQ/L Potassium Level 3.6 MEQ/L Chloride Level 106 MEQ/L Carbon Dioxide Level 26.2 MEQ/L Anion Gap 6 MEQ/L Estimat Glomerular Filtration Rate 186 ML/MIN [facility] Medical Decision Making Medical Screen Exam Complete: Yes Emergency Medical Condition: Yes Medical Record Reviewed: Yes Differential Diagnosis UTI versus renal stone versus muscle strain Narrative Course Patient is a 27-year-old female comes in complaining of flank pain. Exam shows no acute abnormalities. Patient is afebrile on arrival. IV established, labs sent. Labs show normal kidney function. Urinalysis is negative for infection. CT abdomen and pelvis performed shows no acute abnormalities. Last 24 hours Impressions Abdomen/Pelvis CT 09/19/171948 Signed Impressions: Service Date/Time: Tuesday, September 19, 2017 20:02 - CONCLUSION: Mild hydronephrosis on the right without hydroureter. A mild degree of congenital UPJ obstruction would be in the differential. Otherwise negative. No stones or inflammatory changes are demonstrated. Nixon Franz MD Patient advised of results. She is given IV fluids and feeling better. She is encouraged to drink more fluids and take Tylenol or ibuprofen as needed for pain. Advised return to the ED as needed for any worsening symptoms. Advised follow-up with a primary care doctor. Diagnosis Primary Impression: Back pain Qualified Codes: M54.9 - Dorsalgia, unspecified Patient Instructions: Back Pain (ED), General Instructions Additional Instructions: Drink plenty of fluids. Take Tylenol or ibuprofen as needed for pain. Follow- up with a primary care doctor. Return to the ED as needed for any worsening symptoms. Scripts No Active Prescriptions or Reported Meds Disposition: 01 DISCHARGE HOME Condition: Stable Summer Rosario MD Sep 19, 2017 20:42
== END 2017-09-19 21:01 | disposition home or self-care (01) ==
LOC: PHED 17:51
DX: M54.9 Dorsalgia, unspecified (principal); J45.909 Unspecified asthma, uncomplicated
CPT/HCPCS: 74176; 80053; 81001; 84703; 85025; 99284; J7030

== ENCOUNTER 2017-09-21 10:52 | Emergency (ER) | payer OTHER ==
[~2017-09-21] VITALS: Ht 165.1 cm; Wt 65.0 kg
[2017-09-21 10:57] VITALS: BP 125/74; PULSE 108; RESP 18; TEMP 97.9; O2SAT 100
--- NOTE | 2017-09-21 11:43 | PD ---
HPI Chief Complaint: Fever Time Seen by Provider: 11:14 Travel History International Travel<30 days: No Contact w/Intl Traveler<30days: No Traveled to known affect area: No History of Present Illness HPI 27-year-old female that presents to the ED for evaluation of neck pain, headache , fever and flank pain. Per patient she was here 2 days ago at [facility] and was evaluated had a full workup that essentially was unremarkable. 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 She states that the flank pain overall has improved and comes and goes. Per patient yesterday she had a bad day where she had severe neck pain and headache and it was very hard for her to move without severe pain. Per patient she took ibuprofen and Tylenol with some relief of the fever and pain and today feels improved although she still has a headache and slight neck pain. She is able to move it fully. She states that she has noted some soreness on her throat and she has not had any appetite. She states that her son had an episode of possible seizure-like activity and they are concerned that patient might have meningitis secondary to the symptoms. Patient states that currently her pain is 4 out of 10. She states that the fever has been as high as 102. She has been taking fever relievers today and has no fever currently. She denies any cough. She states that about 3 weeks ago she was diagnosed with a sinus infection to antibiotics to make it better. She denies any cough or runny nose at this time. She denies any urinary or bowel movement issues. Per patient she did have an frequency of urine but this has improved. She was diagnosed with viral syndrome but she is concerned there is something else going on. She does tell me that she was diagnosed with latent TB and has not gotten any treatment for it. [facility] Past Medical History Asthma: Yes Diminished Hearing: No Respiratory: Yes (LATENT TB) Immunizations Current: Yes ?: Not LMP: FEB 2016 : 0 Past Surgical History Oral Surgery: Yes (WISDOM TOOTH) Social History Alcohol Use: No Tobacco Use: No Substance Use: No Allergies-Medications (Allergen,Severity, Reaction): Coded Allergies: morphine (Unverified Allergy, Severe, Swelling, 09/21/17) sweeling on arms clavulanic acid (Unverified Allergy, Intermediate, vomiting, 09/21/17) chlorhexidine (Unverified Allergy, Unknown, 09/21/17) amoxicillin (Verified Adverse Reaction, Severe, Nausea/Vomiting, 09/21/17) Uncoded Allergies: PRESERVATIVES (Adverse Reaction, Severe, 08/28/14) Reported Meds & Prescriptions Reported Meds & Active Scripts Active No Active Prescriptions or Reported Medications Review of Systems Except as stated in HPI: all other systems reviewed are Neg Physical Exam Narrative GENERAL: Well-nourished, well-developed patient in no apparent distress. SKIN: Warm and dry. HEAD: Atraumatic. Normocephalic. EYES: Pupils equal and round reactive to light and accommodation. No scleral icterus. No injection or drainage. ENT: No nasal bleeding or discharge. Mucous membranes pink and moist. TMs are clear with no sign of infection or perforation. No mastoid tenderness. Ear canals are intact bilaterally. No lymphadenopathy. Nostril mucosa is red and moist with clear mucus noted. No sinus tenderness to palpation noted. Tonsils are not enlarged or swollen. No ulvua Deviation. Tongue is midline. NECK: Trachea midline. No JVD. No meningeal signs noted CARDIOVASCULAR: Regular rate and rhythm. RESPIRATORY: No accessory muscle use. Clear to auscultation. Breath sounds equal bilaterally. GASTROINTESTINAL: Abdomen soft, non-tender, nondistended. Hepatic and splenic margins not palpable. MUSCULOSKELETAL: Extremities without clubbing, cyanosis, or edema. No obvious deformities. Full range of motion of the upper and lower extremities bilaterally. 2+ pulses bilaterally. NEUROLOGICAL: Awake and alert. No obvious cranial nerve deficits. Motor grossly within normal limits. Five out of 5 muscle strength in the arms and legs. Normal speech. PSYCHIATRIC: Appropriate mood and affect; insight and judgment normal. Data Data Last Documented VS Vital Signs Date Time Temp Pulse Resp B/P (MAP) Pulse Ox O2 Delivery O2 Flow Rate FiO2 09/21/17 15:02 09/21/17 13:00 99.0 80 18 99 Room Air Orders Orders Complete Blood Count With Diff (09/21/17 11:18) Comprehensive Metabolic Panel (09/21/17 11:18) Blood Culture (09/21/17 11:18) Lipase (09/21/17 11:18) Urinalysis - C+S If Indicated (09/21/17 11:18) Iv Access Insert/Monitor (09/21/17 11:18) Lactic Acid Sepsis Protocol (09/21/17 11:19) Chest, Single Ap (09/21/17 ) Group A Rapid Strep Screen (09/21/17 11:31) Monoscreen (09/21/17 11:31) Sodium Chlor 0.9% 1000 Ml Inj (Ns 1000 M (09/21/17 11:45) Prothrombin Time / Inr (Pt) (09/21/17 12:56) Act Partial Throm Time (Ptt) (09/21/17 12:56) Strep Culture (Group A) (09/21/17 11:55) Moxifloxacin 400 Mg Premix (Avelox 400 M (09/21/17 13:02) Vancomycin Inj (Vancomycin Inj) (09/21/17 13:15) Ed Discharge Order (09/21/17 14:21) Labs Laboratory Tests Test 09/21/17 11:55 09/21/17 12:20 09/21/17 13:30 White Blood Count 2.6 TH/MM3 Red Blood Count 4.50 MIL/MM3 Hemoglobin 13.3 GM/DL Hematocrit 38.8 % Mean Corpuscular Volume 86.1 FL Mean Corpuscular Hemoglobin 29.6 PG Mean Corpuscular Hemoglobin Concent 34.3 % Red Cell Distribution Width 12.6 % Platelet Count 175 TH/MM3 Mean Platelet Volume 7.4 FL Neutrophils (%) (Auto) 46.8 % Lymphocytes (%) (Auto) 40.6 % Monocytes (%) (Auto) 12.0 % Eosinophils (%) (Auto) 0.3 % Basophils (%) (Auto) 0.3 % Neutrophils # (Auto) 1.2 TH/MM3 Lymphocytes # (Auto) 1.0 TH/MM3 Monocytes # (Auto) 0.3 TH/MM3 Eosinophils # (Auto) 0.0 TH/MM3 Basophils # (Auto) 0.0 TH/MM3 CBC Comment DIFF FINAL Differential Comment Blood Urea Nitrogen 9 MG/DL Creatinine 0.68 MG/DL Random Glucose 106 MG/DL Total Protein 7.6 GM/DL Albumin 3.8 GM/DL Calcium Level 9.3 MG/DL Alkaline Phosphatase 118 U/L Aspartate Amino Transf (AST/SGOT) 30 U/L Alanine Aminotransferase (ALT/SGPT) 33 U/L Total Bilirubin 0.3 MG/DL Sodium Level 139 MEQ/L Potassium Level 3.9 MEQ/L Chloride Level 105 MEQ/L Carbon Dioxide Level 26.4 MEQ/L Anion Gap 8 MEQ/L Estimat Glomerular Filtration Rate 104 ML/MIN Lactic Acid Level 1.9 mmol/L Lipase 149 U/L Monoscreen NEG Urine Color LIGHT-YELLOW Urine Turbidity CLEAR Urine pH 6.0 Urine Specific [place] 1.007 Urine Protein NEG mg/dL Urine Glucose (UA) NEG mg/dL Urine Ketones NEG mg/dL Urine Occult Blood NEG Urine Nitrite NEG Urine Bilirubin NEG Urine Urobilinogen LESS THAN 2.0 MG/DL Urine Leukocyte Esterase NEG Urine RBC LESS THAN 1 /hpf Urine Squamous Epithelial Cells 4 /hpf Urine Mucus FEW /lpf Microscopic Urinalysis Comment CULT NOT INDICATED Prothrombin Time 10.7 SEC Prothromb Time International Ratio 1.1 RATIO Activated Partial Thromboplast Time 27.3 SEC MDM Medical Decision Making Medical Screen Exam Complete: Yes Emergency Medical Condition: Yes Medical Record Reviewed: Yes Interpretation(s) CBC & BMP Diagram 09/21/17 11:55 Total Protein 7.6, Albumin 3.8, Calcium Level 9.3, Alkaline Phosphatase 118 H, Aspartate Amino Transf (AST/SGOT) 30, Alanine Aminotransferase (ALT/SGPT) 33, Total Bilirubin 0.3 strep negative mono negative UA negative other than mucous Last Impressions Chest X-Ray 09/21/17 0000 Signed Impressions: Service Date/Time: Friday, September 21, 2017 11:37 - CONCLUSION: Normal examination. Devon Burt MD Differential Diagnosis Sepsis versus viral illness versus strep throat versus mononucleosis versus pneumonia versus TB versus UTI versus meningitis versus pyelonephritis Narrative Course 27-year-old female that presents to the ED for evaluation of fever and flank pain and neck pain. Patient was properly examined and was found to have signs and symptoms of unclear etiology potentially concerning for infectious etiology. 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 She on my exam has no CVA tenderness. I wonder if this is related to possible infection. Labs and imaging will be ordered. She does complain of some sore throat that she did not have before and will do a strep test as well as mono test. Labs will be done. Patient was given IV fluids. Labs and imaging showed no sign of acute disease. For the most part returned benign. Patient had family are concerned because of the neck stiffness that she has been developing if she does not take the ibuprofen. Also the headaches. They are concerned for meningitis. LP was ordered. My attending Dr Lees recommends that IR performs the LP. IR contacted and aware. By the time that I are was going to come see the patient patient apparently changed her mind. She apparently discussed the case with her primary care doctor on 1 of her coworkers who recommended that she just monitors her symptoms for now. Family and patient are reluctant to do the LP at this time. She understands risks and benefits. I think at this time she is a reasonable candidate for outpatient treatment. 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 They understand that if anything worsens she is to come back. She agrees with this plan. Take OTC meds as needed. see ED worsening symptoms. Follow-up with PCP. She was given a note for work to come back on Friday Diagnosis Primary Impression: Viral illness Patient Instructions: General Instructions Departure Forms: Tests/Procedures, Work Release Enter return to work date: September 23, 2017 Additional Instructions: Motrin and Tylenol for pain and fever. Drink plenty of fluids. Follow-up with PCP. See ED for worsening symptoms. Med/Other Pt SpecificInfo: No Meds Exist/No RX given Scripts No Active Prescriptions or Reported Meds Disposition: 01 DISCHARGE HOME Condition: Stable Venkat Real Sep 21, 2017 11:43
[2017-09-21] MEDS ORDERED: SODIUM CHLOR 0.9% 1000 ML INJ 1,000 ML IV ONE (11:45)
--- NOTE | 2017-09-21 11:48 | RADRPT ---
EXAM DATE/TIME: 09/21/2017 11:37 [facility] COMPARISON: No previous studies available for comparison. INDICATIONS : Fever MEDICAL HISTORY : None. SURGICAL HISTORY : None. ENCOUNTER: Initial ACUITY: 1 week PAIN SCORE: 0/10 LOCATION: chest FINDINGS: A single view of the chest demonstrates the lungs to be symmetrically aerated without evidence of mas s, infiltrate or effusion. The cardiomediastinal contours are unremarkable. Osseous structures are intact. CONCLUSION: Normal examination. Devon Burt MD on September 21, 2017 at 11:45 Board Certified Radiologist. This report was verified electronically.
[2017-09-21 12:35] LABS: AUTOMATED NEUTROPHIL # 1.2 TH/MM3 (1.8-7.7); BASOPHIL % 0.3 % (0.0-2.0); EOSINOPHIL % 0.3 % (0.0-4.0); HEMATOCRIT 38.8 % (35.0-46.0); HEMOGLOBIN 13.3 GM/DL (11.6-15.3); LYMPH % 40.6 % (9.0-44.0); MEAN CELL VOLUME 86.1 FL (80.0-100.0); MEAN CORPUSCULAR HEMOGLOBIN 29.6 PG (27.0-34.0); MEAN CORPUSCULAR HGB CONC 34.3 % (32.0-36.0); MEAN PLATELET VOLUME 7.4 FL (7.0-11.0); MONOCYTE # 0.3 TH/MM3 (0-0.9); NEUT % 46.8 % (16.0-70.0); PLATELET COUNT 175 TH/MM3 (150-450); RED CELL DISTRIBUTION WIDTH 12.6 % (11.6-17.2); WHITE BLOOD COUNT 2.6 TH/MM3 (4.0-11.0)
[2017-09-21 12:53] LABS: BILIRUBIN, URINE NEG (NEG); BLOOD, URINE NEG (NEG); GLUCOSE,URINE NEG (NEG); KETONE, URINE NEG (NEG); MUCUS URINE FEW /lpf (OCC); NITRITE,URINE NEG (NEG); SQUAMOUS EPITHELIAL CELL URINE 4 /hpf (0-5); URINE COLOR LIGHT-YELLOW (YELLW/STRAW); URINE LEUKOCYTE ESTERASE NEG (NEG)
[2017-09-21 12:56] LABS: ALBUMIN 3.8 GM/DL (3.4-5.0); ALT (GPT) 33 U/L (10-53); AST (GOT) 30 U/L (15-37); BICARBONATE 26.4 MEQ/L (21.0-32.0); BLOOD UREA NITROGEN 9 MG/DL (7-18); CALCIUM 9.3 MG/DL (8.5-10.1); CHLORIDE 105 MEQ/L (98-107); CREATININE 0.68 MG/DL (0.50-1.00); GLOMERULAR FILTRATION RATE 104 ML/MIN (>89); GLUCOSE,RANDOM 106 MG/DL (74-106); SODIUM (NA) 139 MEQ/L (136-145)
[2017-09-21 12:57] LABS: ALKALINE PHOSPHATASE 118 U/L (45-117); TOTAL BILIRUBIN ADULT 0.3 MG/DL (0.2-1.0); TOTAL PROTEIN 7.6 GM/DL (6.4-8.2)
[2017-09-21 13:00] VITALS: BP 123/67; PULSE 80; RESP 18; TEMP 99; O2SAT 99
[2017-09-21] MEDS ORDERED: MOXIFLOXACIN 400 MG PREMIX 250 ML IV STA (13:02)
[2017-09-21 13:04] LABS: MONOSCREEN NEG (NEG)
[2017-09-21] MEDS ORDERED: VANCOMYCIN INJ 1,000 MG in SODIUM CHLOR 0.9% 250 ML INJ 250 ML IV ONE (13:15)
--- NOTE | 2017-09-21 13:26 | PD ---
Physical Exam Date Seen by Provider: Sep 21, 2017 Narrative This patient presents with a chief complaint of fever, headache and stiff neck. She has been sick for couple days. Data Data Last Documented VS Vital Signs Date Time Temp Pulse Resp B/P (MAP) Pulse Ox O2 Delivery O2 Flow Rate FiO2 09/21/17 13:00 99.0 80 18 123/67 (85) 99 Room Air Orders Orders Complete Blood Count With Diff (09/21/17 11:18) Comprehensive Metabolic Panel (09/21/17 11:18) Blood Culture (09/21/17 11:18) Lipase (09/21/17 11:18) Urinalysis - C+S If Indicated (09/21/17 11:18) Iv Access Insert/Monitor (09/21/17 11:18) Lactic Acid Sepsis Protocol (09/21/17 11:19) Chest, Single Ap (09/21/17 ) Group A Rapid Strep Screen (09/21/17 11:31) Monoscreen (09/21/17 11:31) Sodium Chlor 0.9% 1000 Ml Inj (Ns 1000 M (09/21/17 11:45) Csf Cell Count + Differential (09/21/17 12:56) Glucose, Csf (09/21/17 12:56) Total Protein, Csf (09/21/17 12:56) Csf Culture And Gram Stain (09/21/17 12:56) Csf Afb Culture And Stain (09/21/17 12:56) Csf Fungus Culture And Stain (09/21/17 12:56) Prothrombin Time / Inr (Pt) (09/21/17 12:56) Act Partial Throm Time (Ptt) (09/21/17 12:56) Lumbar Puncture (09/21/17 ) Strep Culture (Group A) (09/21/17 11:55) Bacterial Antigen Csf (09/21/17 13:02) Csf Hsv I/Ii Dna,Pcr (09/21/17 13:02) Moxifloxacin 400 Mg Premix (Avelox 400 M (09/21/17 13:02) Vancomycin Inj (Vancomycin Inj) (09/21/17 13:15) Labs Laboratory Tests Test 09/21/17 11:55 09/21/17 12:20 White Blood Count 2.6 TH/MM3 Red Blood Count 4.50 MIL/MM3 Hemoglobin 13.3 GM/DL Hematocrit 38.8 % Mean Corpuscular Volume 86.1 FL Mean Corpuscular Hemoglobin 29.6 PG Mean Corpuscular Hemoglobin Concent 34.3 % Red Cell Distribution Width 12.6 % Platelet Count 175 TH/MM3 Mean Platelet Volume 7.4 FL Neutrophils (%) (Auto) 46.8 % Lymphocytes (%) (Auto) 40.6 % Monocytes (%) (Auto) 12.0 % Eosinophils (%) (Auto) 0.3 % Basophils (%) (Auto) 0.3 % Neutrophils # (Auto) 1.2 TH/MM3 Lymphocytes # (Auto) 1.0 TH/MM3 Monocytes # (Auto) 0.3 TH/MM3 Eosinophils # (Auto) 0.0 TH/MM3 Basophils # (Auto) 0.0 TH/MM3 CBC Comment DIFF FINAL Differential Comment Blood Urea Nitrogen 9 MG/DL Creatinine 0.68 MG/DL Random Glucose 106 MG/DL Total Protein 7.6 GM/DL Albumin 3.8 GM/DL Calcium Level 9.3 MG/DL Alkaline Phosphatase 118 U/L Aspartate Amino Transf (AST/SGOT) 30 U/L Alanine Aminotransferase (ALT/SGPT) 33 U/L Total Bilirubin 0.3 MG/DL Sodium Level 139 MEQ/L Potassium Level 3.9 MEQ/L Chloride Level 105 MEQ/L Carbon Dioxide Level 26.4 MEQ/L Anion Gap 8 MEQ/L Estimat Glomerular Filtration Rate 104 ML/MIN Lactic Acid Level 1.9 mmol/L Lipase 149 U/L Monoscreen NEG Urine Color LIGHT-YELLOW Urine Turbidity CLEAR Urine pH 6.0 Urine Specific [place] 1.007 Urine Protein NEG mg/dL Urine Glucose (UA) NEG mg/dL Urine Ketones NEG mg/dL Urine Occult Blood NEG Urine Nitrite NEG Urine Bilirubin NEG Urine Urobilinogen LESS THAN 2.0 MG/DL Urine Leukocyte Esterase NEG Urine RBC LESS THAN 1 /hpf Urine Squamous Epithelial Cells 4 /hpf Urine Mucus FEW /lpf Microscopic Urinalysis Comment CULT NOT INDICATED MDM Supervised Visit with BELINDA: Yes Narrative Course I, Dr. Padilla, have reviewed the advance practice practitioner's documentation and am in agreement, met with the patient face to face, made the diagnosis, and the medical decision making was done by me. *My assessment and Findings: This patient is nontoxic-appearing. See Eva Coughlin note for lab and radiology results, final diagnosis and disposition Scripts No Active Prescriptions or Reported Meds Guillermina Paidlla MD Sep 21, 2017 13:26
[2017-09-21 14:13] LABS: INTERNATIONAL NORMALIZED RATIO 1.1 RATIO; PROTHROMBIN TIME - PATIENT 10.7 SEC (9.8-11.6)
== END 2017-09-21 15:04 | disposition home or self-care (01) ==
LOC: NEPE 10:52
DX: B34.9 Viral infection, unspecified (principal); R51 Headache; M54.2 Cervicalgia; R10.9 Unspecified abdominal pain; J45.909 Unspecified asthma, uncomplicated; R76.11 Nonspecific reaction to tuberculin skin test without active tuberculosis
CPT/HCPCS: 71045; 80053; 81001; 83605; 83690; 85025; 85610; 85730; 86308; 87040; 87081; 87880; 96360; 99284; J7030

== ENCOUNTER → 2017-11-04 | Outpatient (CLI) | payer OTHER ==
[2017-11-04 10:15] LABS: BASOPHIL % 0.3 % (0.0-2.0); EOSINOPHIL # 0.1 TH/MM3 (0-0.4); EOSINOPHIL % 1.2 % (0.0-4.0); HEMATOCRIT 38.6 % (35.0-46.0); LYMPH % 51.3 % (9.0-44.0); LYMPHOCYTE # 3.9 TH/MM3 (1.0-4.8); MEAN CELL VOLUME 86.6 FL (80.0-100.0); MEAN CORPUSCULAR HEMOGLOBIN 29.2 PG (27.0-34.0); MEAN CORPUSCULAR HGB CONC 33.7 % (32.0-36.0); MEAN PLATELET VOLUME 7.4 FL (7.0-11.0); MONO % 7.7 % (0.0-8.0); MONOCYTE # 0.6 TH/MM3 (0-0.9); NEUT % 39.5 % (16.0-70.0); PLATELET COUNT 280 TH/MM3 (150-450); RED BLOOD COUNT 4.46 MIL/MM3 (4.00-5.30); WHITE BLOOD COUNT 7.7 TH/MM3 (4.0-11.0)
[2017-11-04 10:22] LABS: ALBUMIN 4.2 GM/DL (3.4-5.0); AST (GOT) 19 U/L (15-37); BICARBONATE 25.9 MEQ/L (21.0-32.0); BLOOD UREA NITROGEN 17 MG/DL (7-18); CALCIUM 9.3 MG/DL (8.5-10.1); CHLORIDE 106 MEQ/L (98-107); CREATININE 0.59 MG/DL (0.50-1.00); GLOMERULAR FILTRATION RATE 122 ML/MIN (>89); GLUCOSE,FASTING 83 MG/DL (74-99); SODIUM (NA) 141 MEQ/L (136-145)
[2017-11-04 10:35] LABS: ALKALINE PHOSPHATASE 116 U/L (45-117); ALT (GPT) 26 U/L (10-53); FREE T4 1.02 NG/DL (0.76-1.46); TOTAL BILIRUBIN ADULT 0.2 MG/DL (0.2-1.0)
== END ==
LOC: PLAB 07:33
PROVIDERS: ATTEND Family Medicine
DX: D72.819 Decreased white blood cell count, unspecified (principal); R53.83 Other fatigue
CPT/HCPCS: 36415; 80053; 84439; 84443; 85025